=== PATIENT | male | born 1945 | race Caucasian/White ===

== ENCOUNTER 2020-04-09 17:35 | Inpatient (IN) | payer MEDICARE ==
[~2020-04-09] VITALS: Ht 182.9 cm; Wt 80.4 kg
[2020-04-09 18:00] LABS: BASO # 0.1 x10^3/uL (0.0-0.2); BASO % 1 % (0-3); EOS # 0.3 x10^3/uL (0.0-0.7); EOS % 3 % (0-3); HEMATOCRIT 44.9 % (39.0-53.0); HEMOGLOBIN 15.6 g/dL (13.0-17.5); LYMPH # 1.4 x10^3/uL (1.0-4.8); LYMPH % 16 % (24-48); MEAN CORPUSCULAR HEMOGLOBIN 31 pg (25-35); MEAN CORPUSCULAR HGB CONC 35 g/dL (31-37); MEAN CORPUSCULAR VOLUME 88 fL (79-100); MONO # 0.6 x10^3/uL (0.0-1.1); MONO % 7 % (0-9); NEUT # 6.3 x10^3/uL (1.8-7.7); NEUT % 74 % (31-73); PLATELET COUNT 248 x10^3/uL (140-400); RED BLOOD COUNT 5.13 x10^6/uL (4.30-5.70); RED CELL DISTRIBUTION WIDTH 14.7 % (11.5-14.5); WHITE BLOOD COUNT 8.6 x10^3/uL (4.0-11.0)
[2020-04-09] MEDS ORDERED: ONDANSETRON PF 4 MG/2 ML VIAL. ONE (18:00)
[2020-04-09] MEDS ORDERED: ONDANSETRON PF 4 MG/2 ML VIAL. IVP ONE (18:00)
[2020-04-09 18:06] LABS: CALCIUM 9.1 mg/dL (8.5-10.1); CREATININE 1.6 mg/dL (0.7-1.3); GFR 42.5; POTASSIUM 3.8 mmol/L (3.5-5.1)
--- NOTE | 2020-04-09 18:17 | RAD ---
CHEST AP ONLY Clinical Indication: Reason: chest pain / Spl. Instructions: / History: Comparison: None. Findings: The cardiomediastinal silhouette is normal. Question small calcified granuloma left lung base. Lungs are clear. There is no pneumothorax. No pleural effusion is appreciated. No acute bone abnormality. IMPRESSION: No acute cardiopulmonary process. Electronically signed by: Bassem Powell MD (04/09/2020 6:14 PM) [facility]PITALAvlin
[2020-04-09] MEDS ORDERED: ASPIRIN CHEWABLE 81 MG TABLET. PO ONE (18:30)
[2020-04-09] MEDS ORDERED: NITROGLYCERIN SUBLINGUAL 0.4 MG BOTTLE OF 25. SL ONE (18:33)
--- NOTE | 2020-04-09 18:40 | PHYS DOC ---
Past Medical History Past Medical History: No Pertinent History Past Surgical History: Other Additional Past Surgical Histo: SKIN CA REMOVED Smoking Status: Current Every Day Smoker Additional Information: 0.3 PPD Alcohol Use: Rarely General Adult EDM: Chief Complaint: CHEST PAIN HPI: HPI: Patient is a 74 year old male who presents to the ED with a chief complaint of chest pain. Patient states that [place] and the pain started this morning. Patient states that the pain is getting worse and is now radiating to both shoulders. Patient does describe the pain to be in his midsternal region. Patient states that he is an active smoker. Patient denies history of diabetes, hypertension, hyperlipidemia. Patient states that his last cardiac evaluation was over 25 years ago and he does not have a PCP as he has not been to a physician in over 25 years. Review of Systems: Review of Systems: Constitutional: Denies fever or chills. [] Eyes: Denies change in visual acuity. [] HENT: Denies nasal congestion or sore throat. [] Respiratory: Denies cough or shortness of breath. [] Cardiovascular: Complains of chest pain [] GI: Denies abdominal pain, nausea, vomiting, bloody stools or diarrhea. [] : Denies dysuria. [] Neurologic: Denies headache, focal weakness or sensory changes. [] Heart Score: HEART Score for Chest Pain: HEART Score for Chest Pain Response (Comments) Value History Moderately Suspicious 1 ECG Nonspecific Repolarizatio 1 Age > 65 2 Risk Factors 1 or 2 Risk Factors 1 Troponin >1-<3x Normal Limit 1 Total 6 Risk Factors: Risk Factors: DM, Current or recent (<one month) smoker, HTN, HLP, family history of CAD, obesity. Risk Scores: Score 0 - 3: 2.5% MACE over next 6 weeks - Discharge Home Score 4 - 6: 20.3% MACE over next 6 weeks - Admit for Clinical Observation Score 7 - 10: 72.7% MACE over next 6 weeks - Early Invasive Strategies Current Medications: Current Medications Medications (Trade) Dose Ordered Sig/Darlin Start Time Stop Time Status Last Admin Dose Admin Aspirin (Aspirin Chewable) 324 mg 1X ONCE 04/09/20 18:30 04/09/20 18:31 DC 04/09/20 18:33 324 MG Nitroglycerin (Nitrostat) 0.4 mg STK-MED ONCE 04/09/20 18:33 04/09/20 18:33 DC Ondansetron HCl (Zofran) 4 mg 1X ONCE 04/09/20 18:00 04/09/20 18:02 DC 04/09/20 18:04 4 MG Allergies: Allergies: Allergies Coded Allergies Type Severity Reaction Last Updated Verified procaine Allergy Unknown UNKNOWN 04/09/20 Yes Physical Exam: PE: Constitutional: Well developed, well nourished, no acute distress, non-toxic appearance. [] HENT: Normocephalic, atraumatic Eyes: EOMI Neck: Normal range of motion, Supple Cardiovascular:Heart rate regular rhythm Lungs & Thorax: Bilateral breath sounds clear to auscultation [] Abdomen: Bowel sounds normal, soft, no tenderness Extremities: No tenderness, ROM intact Neurologic: Alert and oriented X 3 Current Patient Data: Labs: Laboratory Tests Test 04/09/20 17:45 White Blood Count 8.6 x10^3/uL (4.0-11.0) Red Blood Count 5.13 x10^6/uL (4.30-5.70) Hemoglobin 15.6 g/dL (13.0-17.5) Hematocrit 44.9 % (39.0-53.0) Mean Corpuscular Volume 88 fL (79-100) Mean Corpuscular Hemoglobin 31 pg (25-35) Mean Corpuscular Hemoglobin Concent 35 g/dL (31-37) Red Cell Distribution Width 14.7 % (11.5-14.5) H Platelet Count 248 x10^3/uL (140-400) Neutrophils (%) (Auto) 74 % (31-73) H Lymphocytes (%) (Auto) 16 % (24-48) L Monocytes (%) (Auto) 7 % (0-9) Eosinophils (%) (Auto) 3 % (0-3) Basophils (%) (Auto) 1 % (0-3) Neutrophils # (Auto) 6.3 x10^3/uL (1.8-7.7) Lymphocytes # (Auto) 1.4 x10^3/uL (1.0-4.8) Monocytes # (Auto) 0.6 x10^3/uL (0.0-1.1) Eosinophils # (Auto) 0.3 x10^3/uL (0.0-0.7) Basophils # (Auto) 0.1 x10^3/uL (0.0-0.2) Sodium Level 136 mmol/L (136-145) Potassium Level 3.8 mmol/L (3.5-5.1) Chloride Level 99 mmol/L (98-107) Carbon Dioxide Level 25 mmol/L (21-32) Anion Gap 12 (6-14) Blood Urea Nitrogen 19 mg/dL (8-26) Creatinine 1.6 mg/dL (0.7-1.3) H Estimated GFR (Cockcroft-Gault) 42.5 Glucose Level 114 mg/dL (70-99) H Calcium Level 9.1 mg/dL (8.5-10.1) Troponin I Quantitative 0.097 ng/mL (0.000-0.055) RC-Iiy-S-Type Natriuretic Peptide 830 pg/mL (0-124) H Lipase 115 U/L (73-393) Laboratory Tests 04/09/20 17:45 Laboratory Tests 04/09/20 17:45 Vital Signs: Vital Signs Date Time Temp Pulse Resp B/P (MAP) Pulse Ox O2 Delivery O2 Flow Rate FiO2 04/09/20 18:36 65 201/113 04/09/20 18:19 20 98 Room Air 04/09/20 17:37 97.8 97.8 EKG: EKG: [EKG interpretation: 17: 38 on 04/09/2020 HR: 70 Sinus rhythm Regular intervals Left axis deviation Hyperacute T waves in lead III, V4, V5 Nonspecific ST changes EKG #2 interpretation: 17: 45 on 04/09/2020 HR: 85 Sinus rhythm Regular intervals Left axis deviation Hyperacute T waves in V3, V4, V5 Nonspecific ST changes ] Radiology/Procedures: Radiology/Procedures: [] Impression: CXR IMPRESSION: No acute cardiopulmonary process. Course & Med Decision Making: Course & Med Decision Making Pertinent Labs and Imaging studies reviewed. (See chart for details) Chest x-ray does not show any acute disease. EKG shows acute T waves in V3 V4 V5 Labs are within normal limits Troponin is 0.097 Patient is given chewable aspirin in the ER. Patient is also given nitro as he states that his pain is 6 out of 10. Patient's blood pressures also elevated currently. Due to patient's indeterminant troponin, his presentation and comorbidities, patient will be admitted for further evaluation and treatment. I discussed case with Dr. perez from the hospitalist service who accepts admission. Discussed results and plan of care with patient and family. Alex Disclaimer: Alex Disclaimer: This electronic medical record was generated, in whole or in part, using a voice recognition dictation system. Departure Departure Impression: Primary Impression: Chest pain Additional Impression: Unstable angina Disposition: ADMITTED INPATIENT Admitting Physician: EZEQUIEL Condition: GOOD Justicifation of Admission Dx: Justifications for Admission: Justification of Admission Dx: Yes DE: Acute NSTEMI ARLEN MCWILLIAMS DO Apr 09, 2020 18:40
[2020-04-09] MEDS ORDERED: NITROGLYCERIN SUBLINGUAL 0.4 MG BOTTLE OF 25. SL PRN ×2 (18:45)
[2020-04-09] MEDS ORDERED: ACETAMINOPHEN 325 MG TABLET. PO PRN (18:45)
[2020-04-09 19:24] LABS: PROTHROMBIN TIME PATIENT 14.3 SEC (11.7-14.0)
[2020-04-09] MEDS ORDERED: MORPHINE SULFATE 4 MG/ML VIAL. IV PRN (21:00)
[2020-04-09] MEDS ORDERED: amLODIPine BESYLATE 5 MG TABLET PO ONE (21:00)
[2020-04-09] MEDS ORDERED: NICOTINE 21MG PATCH. TD PRN (21:15)
--- NOTE | 2020-04-09 21:21 | PDOC1 ---
History and Physical Date of Admission Date of Admission DATE: 04/09/20 TIME: 21:20 Source Source: Chart review, Patient History of Present Illness History of Present Illness Mr. Grewal, is a 74 year old male who presents to the ED with a chief complaint of chest pain. Patient states that he was [place] all [place] and the pain started this morning. Patient states that the pain is getting worse and is now radiating to both shoulders. H ethought the pain was heartburn at first, but then worsened, with rpessure, 04/14, Patient does describe the pain to be in his midsternal region. NO cardiac family hx, he has no PCP as he has not been to a physician in over 25 years. Past Medical History Cardiovascular: No pertinent hx Pulmonary: No pertinent hx GI: No pertinent hx Heme/Onc: No pertinent hx Hepatobiliary: No pertinent hx Family History Family History: No Significant Social History Smoke: <1 pack per day (quit for 7 years, restarted when he became a ) ALCOHOL: social Drugs: None Current Problem List Problem List Problems Medical Problems: (1) Chest pain Status: Acute (2) Unstable angina Status: Acute Current Medications Current Medications Current Medications Ondansetron HCl (Zofran) 4 mg STK-MED ONCE .ROUTE ; Start 04/09/20 at 18:00; Stop 04/09/20 at 18:00; Status DC Ondansetron HCl (Zofran) 4 mg 1X ONCE IVP Last administered on 04/09/20at 18:04; Start 04/09/20 at 18:00; Stop 04/09/20 at 18:02; Status DC Aspirin (Aspirin Chewable) 324 mg 1X ONCE PO Last administered on 04/09/20at 18:33; Start 04/09/20 at 18:30; Stop 04/09/20 at 18:31; Status DC Nitroglycerin (Nitrostat) 0.4 mg PRN Q5MIN PRN SL CHEST PAIN Last administered on 04/09/20at 18:36; Start 04/09/20 at 18:45 Nitroglycerin (Nitrostat) 0.4 mg STK-MED ONCE SL ; Start 04/09/20 at 18:33; Stop 04/09/20 at 18:33; Status DC Acetaminophen (Tylenol) 650 mg PRN Q4HRS PRN PO FEVER > 100.3'F; Start 04/09/20 at 18:45; Stop 04/10/20 at 18:44 Nitroglycerin (Nitrostat) 0.4 mg PRN Q5MIN PRN SL CHEST PAIN; Start 04/09/20 at 18:45; Stop 04/10/20 at 18:44 Morphine Sulfate (Morphine Sulfate) 4 mg PRN Q2HR PRN IV SEVERE PAIN 7-10; Start 04/09/20 at 21:00 Amlodipine Besylate (Norvasc) 5 mg 1X ONCE PO ; Start 04/09/20 at 21:00; Stop 04/09/20 at 21:01; Status DC Amlodipine Besylate (Norvasc) 5 mg DAILY PO ; Start 04/10/20 at 09:00 Allergies Allergies: Coded Allergies: procaine (Verified Allergy, Intermediate, 04/09/20) ROS General: No: Chills, Night Sweats, Fatigue, Malaise, Appetite, Other PSYCHOLOGICAL ROS: No: Anxiety, Behavioral Disorder, Concentration difficultie, Decreased libido, Depression, Disorientation, Hallucinations, Hostility, Irritablity, Memory difficulties, Mood Swings, Obsessive thoughts, Physical abuse, Sexual abuse, Sleep disturbances, Suicidal ideation, Other Eyes: No Blurry vision, No Decreased vision, No Double vision, No Dry eyes, No Excessive tearing, No Eye Pain, No Itchy Eyes, No Loss of vision, No Photophobia, No Scotomata, No Uses contacts, No Uses glasses, No Other HEENT: No: Heacaches, Visual Changes, Hearing change, Nasal congestion, Nasal discharge, Oral lesions, Sinus pain, Sore Throat, Epistaxis, Sneezing, Snoring, Tinnitus, Vertigo, Vocal changes, Other Respiratory: No: Cough, Hemoptysis, Orthopnea, Pleuritic Pain, Shortness of breath, SOB with excertion, Sputum Changes, Stridor, Tachypnea, Wheezing, Other Cardiovascular: yes Chest Pain; No Palpitations, No Orthopnea, No Paroxysmal Noc. Dyspnea, No Edema, No Lt Headedness, No Other Gastrointestinal: No Nausea, No Vomiting, No Abdominal Pain, No Diarrhea, No Constipation, No Melena, No Hematochezia, No Other Genitourinary: No Dysuria, No Frequency, No Incontinence, No Hematuria, No Ret ention, No Discharge, No Urgency, No Pain, No Flank Pain, No Other, No , No , No , No , No , No , No Musculoskeletal: No Gait Disturbance, No Joint Pain, No Joint Stiffness, No Joint Swelling, No Muscle Pain, No Muscular Weakness, No Pain In:, No Swelling In:, No Other Neurological: No Behavorial Changes, No Bowel/Bladder ControlChng, No Confusion, No Dizziness, No Gait Disturbance, No Headaches, No Impaired Coord/balance, No Memory Loss, No Numbness/Tingling, No Seizures, No Speech Problems, No Tremors, No Visual Changes, No Weakness, No Other Skin: No Dry Skin, No Eczema, No Hair Changes, No Lumps, No Mole Changes, No Mottling, No Nail Changes, No Pruritus, No Rash, No Skin Lesion Changes, No Other, No Acne Physical Exam General: Alert, Oriented X3, Cooperative, No acute distress HEENT: Atraumatic, PERRLA, Mucous membr. moist/pink Lungs: Clear to auscultation, Normal air movement Heart: S1S2, RRR, no gallops, no murmurs Extremities: No cyanosis, No edema, Normal pulses Skin: No significant lesion, Other ([place] from [place] this [place] on his legs, ) Neuro: Normal gait, Normal speech, Normal tone, Sensation intact Psych/Mental Status: Mental status NL, Mood NL Vitals Vitals Vital Signs Date Time Temp Pulse Resp B/P (MAP) Pulse Ox O2 Delivery O2 Flow Rate FiO2 04/09/20 19:34 60 18 180/101 (127) 98 Room Air 04/09/20 17:37 97.8 97.8 Labs Labs Laboratory Tests Test 04/09/20 17:45 White Blood Count 8.6 x10^3/uL (4.0-11.0) Red Blood Count 5.13 x10^6/uL (4.30-5.70) Hemoglobin 15.6 g/dL (13.0-17.5) Hematocrit 44.9 % (39.0-53.0) Mean Corpuscular Volume 88 fL (79-100) Mean Corpuscular Hemoglobin 31 pg (25-35) Mean Corpuscular Hemoglobin Concent 35 g/dL (31-37) Red Cell Distribution Width 14.7 % (11.5-14.5) Platelet Count 248 x10^3/uL (140-400) Neutrophils (%) (Auto) 74 % (31-73) Lymphocytes (%) (Auto) 16 % (24-48) Monocytes (%) (Auto) 7 % (0-9) Eosinophils (%) (Auto) 3 % (0-3) Basophils (%) (Auto) 1 % (0-3) Neutrophils # (Auto) 6.3 x10^3/uL (1.8-7.7) Lymphocytes # (Auto) 1.4 x10^3/uL (1.0-4.8) Monocytes # (Auto) 0.6 x10^3/uL (0.0-1.1) Eosinophils # (Auto) 0.3 x10^3/uL (0.0-0.7) Basophils # (Auto) 0.1 x10^3/uL (0.0-0.2) Prothrombin Time 14.3 SEC (11.7-14.0) Prothromb Time International Ratio 1.2 (0.8-1.1) Sodium Level 136 mmol/L (136-145) Potassium Level 3.8 mmol/L (3.5-5.1) Chloride Level 99 mmol/L (98-107) Carbon Dioxide Level 25 mmol/L (21-32) Anion Gap 12 (6-14) Blood Urea Nitrogen 19 mg/dL (8-26) Creatinine 1.6 mg/dL (0.7-1.3) Estimated GFR (Cockcroft-Gault) 42.5 Glucose Level 114 mg/dL (70-99) Calcium Level 9.1 mg/dL (8.5-10.1) Troponin I Quantitative 0.097 ng/mL (0.000-0.055) CP-Ahl-N-Type Natriuretic Peptide 830 pg/mL (0-124) Lipase 115 U/L (73-393) Laboratory Tests Test 04/09/20 17:45 White Blood Count 8.6 x10^3/uL (4.0-11.0) Red Blood Count 5.13 x10^6/uL (4.30-5.70) Hemoglobin 15.6 g/dL (13.0-17.5) Hematocrit 44.9 % (39.0-53.0) Mean Corpuscular Volume 88 fL (79-100) Mean Corpuscular Hemoglobin 31 pg (25-35) Mean Corpuscular Hemoglobin Concent 35 g/dL (31-37) Red Cell Distribution Width 14.7 % (11.5-14.5) Platelet Count 248 x10^3/uL (140-400) Neutrophils (%) (Auto) 74 % (31-73) Lymphocytes (%) (Auto) 16 % (24-48) Monocytes (%) (Auto) 7 % (0-9) Eosinophils (%) (Auto) 3 % (0-3) Basophils (%) (Auto) 1 % (0-3) Neutrophils # (Auto) 6.3 x10^3/uL (1.8-7.7) Lymphocytes # (Auto) 1.4 x10^3/uL (1.0-4.8) Monocytes # (Auto) 0.6 x10^3/uL (0.0-1.1) Eosinophils # (Auto) 0.3 x10^3/uL (0.0-0.7) Basophils # (Auto) 0.1 x10^3/uL (0.0-0.2) Prothrombin Time 14.3 SEC (11.7-14.0) Prothromb Time International Ratio 1.2 (0.8-1.1) Sodium Level 136 mmol/L (136-145) Potassium Level 3.8 mmol/L (3.5-5.1) Chloride Level 99 mmol/L (98-107) Carbon Dioxide Level 25 mmol/L (21-32) Anion Gap 12 (6-14) Blood Urea Nitrogen 19 mg/dL (8-26) Creatinine 1.6 mg/dL (0.7-1.3) Estimated GFR (Cockcroft-Gault) 42.5 Glucose Level 114 mg/dL (70-99) Calcium Level 9.1 mg/dL (8.5-10.1) Troponin I Quantitative 0.097 ng/mL (0.000-0.055) ZQ-Ylf-A-Type Natriuretic Peptide 830 pg/mL (0-124) Lipase 115 U/L (73-393) VTE Prophylaxis Ordered VTE Prophylaxis Devices: No VTE Pharmacological Prophylaxi: Yes Assessment/Plan Assessment/Plan chest pain, angina, r/o ACS tobacco use disorder, accelerated htn, add norvasc, PRN CV consult CKD 3 Justicifation of Admission Dx: Justifications for Admission: Justification of Admission Dx: Yes VA: Acute NSTEMI CRAIG CORONA MD Apr 09, 2020 21:21
[2020-04-09] MEDS ORDERED: HEPARIN for IV BOLUS 10,000 UNIT/10 ML VIAL. IV PRN (22:30)
[2020-04-09] MEDS ORDERED: BISMUTH SUBSALICYLATE 262 MG/15 ML ORAL.SUSP 236ML BOTTLE. PO PRN (22:30)
[2020-04-09 23:00] VITALS: BP 158/90
[2020-04-09] MEDS ORDERED: FAMOTIDINE 20 MG TABLET. PO ONE (23:00)
[2020-04-09] MEDS ORDERED: ENOXAPARIN 40 MG/0.4 ML SYRINGE. SQ SCH (23:00)
[2020-04-09] MEDS: IV NORMAL SALINE 1000ML BAG 1,000 ML IV SCH (23:15)
[2020-04-09] MEDS: HEPARIN 25,000UTS/250ML PREMIX 250 ML IV PRN (23:16)
[2020-04-10] VITALS (9 sets, daily range): BP systolic 107–160; BP diastolic 71–90
[2020-04-10] MEDS: ANTI-COAG MONITOR BY PHARMACY. MC PRN (01:25)
[2020-04-10 04:06] LABS: CHOLESTEROL/HDL RATIO 6.9
[2020-04-10 05:55] LABS: HEMATOCRIT 44.9 % (39.0-53.0); HEMOGLOBIN 15.4 g/dL (13.0-17.5); RED BLOOD COUNT 5.17 x10^6/uL (4.30-5.70); RED CELL DISTRIBUTION WIDTH 14.4 % (11.5-14.5); WHITE BLOOD COUNT 7.7 x10^3/uL (4.0-11.0)
[2020-04-10 06:12] LABS: CALCIUM 8.8 mg/dL (8.5-10.1); CREATININE 1.4 mg/dL (0.7-1.3); GFR 49.5; POTASSIUM 3.7 mmol/L (3.5-5.1)
[2020-04-10] MEDS: amLODIPine BESYLATE 5 MG TABLET PO SCH (08:44)
[2020-04-10] MEDS: IV NORMAL SALINE 1000ML BAG 1,000 ML IV SCH (08:45)
--- NOTE | 2020-04-10 11:24 | PDOC2 ---
PERLA PARIS GASKET NOTCHER 04/10/20 1124: CARDIAC CONSULT DATE OF CONSULT Date of Consult DATE: 04/10/20 TIME: 11:08 REASON FOR CONSULT Reason for Consult: Chest pain REFERRING PHYSICIAN Referring Physician: Dr. Golden SOURCE Source: Chart review, Patient HISTORY OF PRESENT ILLNESS HISTORY OF PRESENT ILLNESS This is a 74 yo male who presented secondary to chest pain. Patient reports that he woke up with heart burn type pain yesterday morning. Located in his central chest. Took antacids, which did not help. Pain worsened throughout the day so he came to the ED for further evaluation and treatment. Developed into tightness in his central chest and was slightly short of breath. No dizziness, diaphoresis, palpitations, or nausea/vomiting. Pain was non-radiating. Was [place] the [place] over the weekend so he was tested for COVID, although he denies any cough, fevers, or illness. No cardiac history although he does not routinely go to the doctor. Is presently CP free. PAST MEDICAL HISTORY Cardiovascular: No pertinent hx Pulmonary: No pertinent hx GI: GERD Heme/Onc: No pertinent hx Musculoskeletal: Osteoarthritis Dermatology: Melanoma PAST SURGICAL HISTORY Past Surgical History: No pertinent history FAMILY HISTORY Family History: Heart Disease (mother ) SOCIAL HISTORY Smoke: <1 pack per day ALCOHOL: occassional Drugs: None Lives: Alone CURRENT MEDICATIONS CURRENT MEDICATIONS Current Medications Medications (Trade) Dose Ordered Sig/Darlin Route PRN Reason Start Time Stop Time Status Last Admin Dose Admin Ondansetron HCl (Zofran) 4 mg 1X ONCE IVP 04/09/20 18:00 04/09/20 18:02 DC 04/09/20 18:04 Aspirin (Aspirin Chewable) 324 mg 1X ONCE PO 04/09/20 18:30 04/09/20 18:31 DC 04/09/20 18:33 Nitroglycerin (Nitrostat) 0.4 mg PRN Q5MIN PRN SL CHEST PAIN 04/09/20 18:45 04/09/20 18:36 Amlodipine Besylate (Norvasc) 5 mg 1X ONCE PO 04/09/20 21:00 04/09/20 21:01 DC 04/09/20 22:04 Amlodipine Besylate (Norvasc) 5 mg DAILY PO 04/10/20 09:00 04/10/20 08:44 Heparin Sodium (Porcine) (Heparin Sodium) 2,100 unit PRN Q6HRS PRN IV FOR UFH LEVEL LESS THAN 0.2 04/09/20 22:30 04/10/20 07:34 Heparin Sodium/ Dextrose 250 ml @ 0 mls/hr CONT PRN IV PER PROTOCOL 04/09/20 22:30 04/09/20 23:16 Info (Anti-Coagulation Monitoring By Pharmacy) 1 each PRN DAILY PRN MC SEE COMMENTS 04/09/20 22:45 04/10/20 01:25 Sodium Chloride 1,000 ml @ 100 mls/hr Q10H IV 04/10/20 00:00 04/10/20 08:45 ALLERGIES ALLERGIES: Coded Allergies: procaine (Verified Allergy, Intermediate, 04/09/20) ROS Review of System 14 point ROS conducted with pertinent positives noted above in HPI PHYSICAL EXAM General: Alert, Oriented X3, Cooperative, No acute distress HEENT: Atraumatic, Mucous membr. moist/pink Lungs: Clear to auscultation Heart: Regular rate, Normal S1, Normal S2 Abdomen: Soft, No tenderness Extremities: No edema, Normal pulses Skin: No significant lesion Neuro: Normal speech, Sensation intact Psych/Mental Status: Mental status NL, Mood NL MUSCULOSKELETAL: Osteoarthritic changes both hands VITALS/I&O VITALS/I&O: Vital Signs Date Time Temp Pulse Resp B/P (MAP) Pulse Ox O2 Delivery O2 Flow Rate FiO2 04/10/20 08:44 68 150/66 04/10/20 03:05 97.0 18 98 Room Air 97.0 I & O 04/09/20 04/09/20 04/10/20 15:00 23:00 07:00 Intake Total 150 ml 50 ml Output Total 400 ml 1400 ml Balance -250 ml -1350 ml LABS Lab: Laboratory Tests Test 04/09/20 17:45 04/09/20 21:36 04/10/20 00:28 04/10/20 05:30 White Blood Count 8.6 x10^3/uL (4.0-11.0) 7.7 x10^3/uL (4.0-11.0) Red Blood Count 5.13 x10^6/uL (4.30-5.70) 5.17 x10^6/uL (4.30-5.70) Hemoglobin 15.6 g/dL (13.0-17.5) 15.4 g/dL (13.0-17.5) Hematocrit 44.9 % (39.0-53.0) 44.9 % (39.0-53.0) Mean Corpuscular Volume 88 fL (79-100) 87 fL (79-100) Mean Corpuscular Hemoglobin 31 pg (25-35) 30 pg (25-35) Mean Corpuscular Hemoglobin Concent 35 g/dL (31-37) 34 g/dL (31-37) Red Cell Distribution Width 14.7 % (11.5-14.5) H 14.4 % (11.5-14.5) Platelet Count 248 x10^3/uL (140-400) 251 x10^3/uL (140-400) Neutrophils (%) (Auto) 74 % (31-73) H Lymphocytes (%) (Auto) 16 % (24-48) L Monocytes (%) (Auto) 7 % (0-9) Eosinophils (%) (Auto) 3 % (0-3) Basophils (%) (Auto) 1 % (0-3) Neutrophils # (Auto) 6.3 x10^3/uL (1.8-7.7) Lymphocytes # (Auto) 1.4 x10^3/uL (1.0-4.8) Monocytes # (Auto) 0.6 x10^3/uL (0.0-1.1) Eosinophils # (Auto) 0.3 x10^3/uL (0.0-0.7) Basophils # (Auto) 0.1 x10^3/uL (0.0-0.2) Prothrombin Time 14.3 SEC (11.7-14.0) H Prothrombin Time INR 1.2 (0.8-1.1) H Sodium Level 136 mmol/L (136-145) 138 mmol/L (136-145) Potassium Level 3.8 mmol/L (3.5-5.1) 3.7 mmol/L (3.5-5.1) Chloride Level 99 mmol/L (98-107) 102 mmol/L (98-107) Carbon Dioxide Level 25 mmol/L (21-32) 29 mmol/L (21-32) Anion Gap 12 (6-14) 7 (6-14) Blood Urea Nitrogen 19 mg/dL (8-26) 15 mg/dL (8-26) Creatinine 1.6 mg/dL (0.7-1.3) H 1.4 mg/dL (0.7-1.3) H Estimated GFR (Cockcroft-Gault) 42.5 49.5 Glucose Level 114 mg/dL (70-99) H 107 mg/dL (70-99) H Calcium Level 9.1 mg/dL (8.5-10.1) 8.8 mg/dL (8.5-10.1) Troponin I Quantitative 0.097 ng/mL (0.000-0.055) 3.149 ng/mL (0.000-0.055) 5.024 ng/mL (0.000-0.055) GA-Yef-P-Type Natriuretic Peptide 830 pg/mL (0-124) H Lipase 115 U/L (73-393) Triglycerides Level 70 mg/dL (0-150) Cholesterol Level 247 mg/dL (0-200) H LDL Cholesterol, Calculated 197 mg/dL (0-100) H VLDL Cholesterol, Calculated 14 mg/dL (0-40) Non-HDL Cholesterol Calculated 211 mg/dL (0-129) H HDL Cholesterol 36 mg/dL (40-60) L Cholesterol/HDL Ratio 6.9 Heparin Anti-Xa Act, Unfractionated < 0.10 IU/mL (0.30-0.70) L Laboratory Tests 04/09/20 17:45 04/10/20 05:30 Laboratory Tests 04/09/20 17:45 04/10/20 05:30 ASSESSMENT/PLAN ASSESSMENT/PLAN 1. Chest pain, ACS 2. NSTEMI; highest trop 5. On heparin gtt 3. Accelerated HTN; remains mildly elevated 4. SERENITY on probable CKD 5. Tobaccoism; discussed/encouraged cessation Recommendations ASA Continue heparin gtt Start metoprolol Continue Norvasc. Hydralazine IV PRN Lipid panel Echo to assess LV systolic function Given presentation in the setting of NSTEMI, recommend LHC with possible PCI. R/b/a discussed with patient and he is agreeable to proceed. Supportive care JUAN SANTANA MD 04/10/20 0871: CARDIAC CONSULT ASSESSMENT/PLAN ASSESSMENT/PLAN Patient seen and examined. Agree with OPERATIONS AGENT's assessment and plan. Clinical picture consistent with non-STEMI. Continue heparin infusion per protocol and proceed with cardiac catheterization and possible angioplasty. Start metoprolol for better blood pressure control. LDL elevated-start statin therapy. Creatinine elevated, most probably chronic kidney disease. We will hydrate intravenously prior to cardiac catheterization. Thank you for your consultation. PERLA PARIS APRN Apr 10, 2020 11:24 JUAN SANTANA MD Apr 10, 2020 15:54
[2020-04-10] MEDS ORDERED: hydrALAZINE 20 MG/ML VIAL. IVP PRN (11:30)
[2020-04-10] MEDS: METOPROLOL TART IMMED RELEASE 25 MG TABLET. PO SCH ×2 (12:00→21:01)
[2020-04-10] MEDS: ASPIRIN ENTERIC COATED 81 MG TABLET.DR. PO SCH (12:00)
--- NOTE | 2020-04-10 12:21 | PDOC ---
[facility] PROGRESS NOTE Chief Complaint Chief Complaint CP History of Present Illness History of Present Illness Pt seen and examined Vitals/I&O Vitals/I&O: Vital Signs Date Time Temp Pulse Resp B/P (MAP) Pulse Ox O2 Delivery O2 Flow Rate FiO2 04/10/20 11:12 97.8 73 20 160/86 (110) Room Air 97.8 04/10/20 03:05 98 I & O 04/09/20 04/09/20 04/10/20 15:00 23:00 07:00 Intake Total 150 ml 50 ml Output Total 400 ml 1400 ml Balance -250 ml -1350 ml Physical Exam General: Alert, Oriented X3, Cooperative, No acute distress Heart: Regular rate, Normal S1, Normal S2 Abdomen: Soft, No tenderness Extremities: No edema, Normal pulses Skin: No significant lesion Labs Labs: Laboratory Tests Test 04/09/20 17:45 04/09/20 19:25 04/09/20 21:36 04/10/20 00:28 White Blood Count 8.6 x10^3/uL (4.0-11.0) Red Blood Count 5.13 x10^6/uL (4.30-5.70) Hemoglobin 15.6 g/dL (13.0-17.5) Hematocrit 44.9 % (39.0-53.0) Mean Corpuscular Volume 88 fL (79-100) Mean Corpuscular Hemoglobin 31 pg (25-35) Mean Corpuscular Hemoglobin Concent 35 g/dL (31-37) Red Cell Distribution Width 14.7 % (11.5-14.5) Platelet Count 248 x10^3/uL (140-400) Neutrophils (%) (Auto) 74 % (31-73) Lymphocytes (%) (Auto) 16 % (24-48) Monocytes (%) (Auto) 7 % (0-9) Eosinophils (%) (Auto) 3 % (0-3) Basophils (%) (Auto) 1 % (0-3) Neutrophils # (Auto) 6.3 x10^3/uL (1.8-7.7) Lymphocytes # (Auto) 1.4 x10^3/uL (1.0-4.8) Monocytes # (Auto) 0.6 x10^3/uL (0.0-1.1) Eosinophils # (Auto) 0.3 x10^3/uL (0.0-0.7) Basophils # (Auto) 0.1 x10^3/uL (0.0-0.2) Prothrombin Time 14.3 SEC (11.7-14.0) Prothromb Time International Ratio 1.2 (0.8-1.1) Sodium Level 136 mmol/L (136-145) Potassium Level 3.8 mmol/L (3.5-5.1) Chloride Level 99 mmol/L (98-107) Carbon Dioxide Level 25 mmol/L (21-32) Anion Gap 12 (6-14) Blood Urea Nitrogen 19 mg/dL (8-26) Creatinine 1.6 mg/dL (0.7-1.3) Estimated GFR (Cockcroft-Gault) 42.5 Glucose Level 114 mg/dL (70-99) Calcium Level 9.1 mg/dL (8.5-10.1) Troponin I Quantitative 0.097 ng/mL (0.000-0.055) 3.149 ng/mL (0.000-0.055) 5.024 ng/mL (0.000-0.055) WX-Ndv-X-Type Natriuretic Peptide 830 pg/mL (0-124) Lipase 115 U/L (73-393) Coronavirus (COVID-19)(PCR) Negative (NEGATIVE) Triglycerides Level 70 mg/dL (0-150) Cholesterol Level 247 mg/dL (0-200) LDL Cholesterol, Calculated 197 mg/dL (0-100) VLDL Cholesterol, Calculated 14 mg/dL (0-40) Non-HDL Cholesterol Calculated 211 mg/dL (0-129) HDL Cholesterol 36 mg/dL (40-60) Cholesterol/HDL Ratio 6.9 Test 04/10/20 05:30 White Blood Count 7.7 x10^3/uL (4.0-11.0) Red Blood Count 5.17 x10^6/uL (4.30-5.70) Hemoglobin 15.4 g/dL (13.0-17.5) Hematocrit 44.9 % (39.0-53.0) Mean Corpuscular Volume 87 fL (79-100) Mean Corpuscular Hemoglobin 30 pg (25-35) Mean Corpuscular Hemoglobin Concent 34 g/dL (31-37) Red Cell Distribution Width 14.4 % (11.5-14.5) Platelet Count 251 x10^3/uL (140-400) Heparin Anti-Xa Act, Unfractionated < 0.10 IU/mL (0.30-0.70) Sodium Level 138 mmol/L (136-145) Potassium Level 3.7 mmol/L (3.5-5.1) Chloride Level 102 mmol/L (98-107) Carbon Dioxide Level 29 mmol/L (21-32) Anion Gap 7 (6-14) Blood Urea Nitrogen 15 mg/dL (8-26) Creatinine 1.4 mg/dL (0.7-1.3) Estimated GFR (Cockcroft-Gault) 49.5 Glucose Level 107 mg/dL (70-99) Calcium Level 8.8 mg/dL (8.5-10.1) Assessment and Plan Assessmemt and Plan Problems Medical Problems: (1) Chest pain Status: Acute (2) Unstable angina Status: Acu Plan RU COVID Cath labs later today probable Heparin drip Comment Review of Relevant I have reviewed the following items cindy (where applicable) has been applied. Medications: Current Medications Medications (Trade) Dose Ordered Sig/Darlin Route PRN Reason Start Time Stop Time Status Last Admin Dose Admin Ondansetron HCl (Zofran) 4 mg 1X ONCE IVP 04/09/20 18:00 04/09/20 18:02 DC 04/09/20 18:04 Aspirin (Aspirin Chewable) 324 mg 1X ONCE PO 04/09/20 18:30 04/09/20 18:31 DC 04/09/20 18:33 Nitroglycerin (Nitrostat) 0.4 mg PRN Q5MIN PRN SL CHEST PAIN 04/09/20 18:45 04/09/20 18:36 Amlodipine Besylate (Norvasc) 5 mg 1X ONCE PO 04/09/20 21:00 04/09/20 21:01 DC 04/09/20 22:04 Amlodipine Besylate (Norvasc) 5 mg DAILY PO 04/10/20 09:00 04/10/20 08:44 Heparin Sodium (Porcine) (Heparin Sodium) 2,100 unit PRN Q6HRS PRN IV FOR UFH LEVEL LESS THAN 0.2 04/09/20 22:30 04/10/20 07:34 Heparin Sodium/ Dextrose 250 ml @ 0 mls/hr CONT PRN IV PER PROTOCOL 04/09/20 22:30 04/09/20 23:16 Info (Anti-Coagulation Monitoring By Pharmacy) 1 each PRN DAILY PRN MC SEE COMMENTS 04/09/20 22:45 04/10/20 01:25 Sodium Chloride 1,000 ml @ 100 mls/hr Q10H IV 04/10/20 00:00 04/10/20 08:45 Justicifation of Admission Dx: Justifications for Admission: Justification of Admission Dx: Yes MT: Acute NSTEMI FRANCOIS HORAN III DO Apr 10, 2020 12:20
[2020-04-10] MEDS ORDERED: LIDOCAINE 1% PF 2 ML VIAL. ONE (14:20)
[2020-04-10] MEDS ORDERED: MIDAZOLAM HCL/PF 2 MG/2 ML VIAL. ONE (14:49)
[2020-04-10] MEDS ORDERED: HEPARIN for IV BOLUS 10,000 UNIT/10 ML VIAL. ONE (14:49)
[2020-04-10] MEDS ORDERED: fentaNYL PF VIAL 100 MCG/2 ML VIAL ONE (14:49)
[2020-04-10] MEDS ORDERED: VERAPAMIL 5 MG/2 ML VIAL. ONE (14:50)
[2020-04-10] MEDS ORDERED: NITROGLYCERIN 200 MCG/2 ML SYRINGE FOR CATH/VASC LAB. ONE (14:50)
[2020-04-10] MEDS ORDERED: IODIXANOL 320 MG/ML 100 ML VIAL. ONE (14:53)
[2020-04-10] MEDS ORDERED: VERAPAMIL 5 MG/2 ML VIAL. IART ONE (15:15)
[2020-04-10] MEDS ORDERED: LIDOCAINE 1% PF 2 ML VIAL. INJ ONE (15:15)
[2020-04-10] MEDS ORDERED: NITROGLYCERIN 200 MCG/2 ML SYRINGE FOR CATH/VASC LAB. IART ONE (15:15)
[2020-04-10] MEDS ORDERED: IODIXANOL 320 MG/ML 100 ML VIAL. IART ONE (15:15)
[2020-04-10] MEDS ORDERED: fentaNYL PF VIAL 100 MCG/2 ML VIAL IV ONE (15:15)
[2020-04-10] MEDS ORDERED: HEPARIN for IV BOLUS 10,000 UNIT/10 ML VIAL. IART ONE (15:15)
[2020-04-10] MEDS ORDERED: MIDAZOLAM HCL/PF 2 MG/2 ML VIAL. IV ONE (15:15)
--- NOTE | 2020-04-10 15:49 | CARD ---
MR#: [id number] Date of Study: 04/10/2020 Ordering Physician: PERLA PARIS, Referring Physician: PERLA PARIS, Tech: RACHEL AN APPROVED REPORT Technologist: RACHEL AN Nurse: Annie Velasquez R.N. Procedure(s) performed: Left heart catheterization, selective coronary angiography and left ventricul ography via right transradial approach FL TIME: 2.6 MINS DOSE: 39 GYCM2 CONTRAST: 92 ML MODERATE SEDATION: 21 MIN INDICATION The indication(s) include : non-STEMI . CSHA Clinical Frailty Scale CSHA Clinical Frailty Scale: Managing Well Heart Failure Heart Failure: No PROCEDURE NARRATIVE After explaining the risks, benefits and alternative options, informed consent was obtained from temo ent. Patient was brought to the cardiac Printing Equipment Mechanic Apprentice and right wrist was prepped and draped in the usual fashion after confirming a positive modified Geoffrey's test. Arterial access was obtained in the [facility] t radial artery and a 6 Argentine sheath was inserted. 6 Argentine Ketan catheter was used to perform marge ective angiography of the left and right coronary arteries. 6 Argentine pigtail catheter was used to pe rform left ventriculography. Patient tolerated the procedure well. Hemostasis was achieved using TR band. There were no immediate complications. The following findings were noted. FINDINGS 1. Hemodynamics: Left ventricular end-diastolic pressure of 15 mmHg. No pullback gradient across th e aortic valve. 2. Left ventriculography: Normal left ventricle systolic function with ejection fraction estimated a t 65 to 70%. No significant mitral regurgitation seen. 3. Coronary angiography: a. The left main coronary artery arose from the left sinus of Valsalva, gave rise to the left anteri or descending and left circumflex arteries and showed 20% distal segment stenosis. b. The left anterior descending artery showed 30% ostial segment stenosis. The third diagonal branc h which is a small to medium caliber vessel showed 90% stenosis in the proximal segment. This is pro bably the culprit vessel for patient's non-STEMI. c. The left circumflex artery was a large and dominant vessel that showed 20% stenosis in the proxim al segment, 30% stenosis in the distal segment. The left posterior descending branch showed 30% sten osis in the proximal segment. d. The right coronary artery was a small and nondominant vessel that showed 100% chronic total occlu miki in the midsegment. Conclusion 1. 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 90% stenosi s involving the proximal segment of small to medium caliber diagonal branch. No lesions needing inte rvention were noted. 2. Normal left ventricular systolic function with ejection fraction estimated at 65 to 70%. Recommendations Medical Therapy Signed by : Clayton Rincon, Electronically Approved : 04/10/2020 15:48:51
[2020-04-10] MEDS ORDERED: IV 1/2 NORMAL SALINE 1,000 ML IV SCH (15:50)
--- NOTE | 2020-04-10 15:50 | PDOC ---
MODERATE SEDATION ASSESSMENT RISKS/ALTERNATIVES Risks/Alternatives Risks and alternatives of this type of sedation and procedure discussed with: RISK/ALTERNATIVES: Patient H & P ON CHART H & P H & P on chart and reviewed for co-morbid conditions and appropriate labs. H&P ON CHART: Yes STATUS PREG STATUS ASSESSED: N/A MEDS/ALLERGIES REVIEWED Meds/Allergies Reviewed Medications and Allergies including time and route of recently administered narcotics and sedatives. MEDS/ALLERGIES REVIEWED: Yes ASA RATING ASA RATING: II AIRWAY ASSESSMENT Airway Assessment Airway patency, oral function limitations, presence of caps, crowns, dentures, partials, and ability to extend neck assessed. AIRWAY ASSESSMENT: Yes MALLAMPATI SCORE MALLAMPATI SCORE: II PRE-SEDATION ASSESSMENT PRE-SEDATION ASSESSMENT: Yes JUAN SANTANA MD Apr 10, 2020 15:49
[2020-04-10] MEDS ORDERED: NITROGLYCERIN SUBLINGUAL 0.4 MG BOTTLE OF 25. SL PRN (16:00)
[2020-04-10] MEDS: HEPARIN 25,000UTS/250ML PREMIX 250 ML IV PRN (17:25)
--- NOTE | 2020-04-10 19:59 | NUR ---
pt was set up fro frequent vital signs upon arrival to the unit. All frequent vitals signs were obtained as needed and seen on monitor and by staff however pts monitor was discharged by mistake and family stated they hit something on the monitor in the room. pts vitals were unable to be pulled up. no distress, no pain, nov bleeding from site of heart cath . will continue to monitor
[2020-04-10] MEDS ORDERED: ATORVASTATIN CALCIUM 40 MG TABLET. PO SCH (21:00)
[2020-04-10] MEDS ORDERED: FAMOTIDINE 20 MG TABLET. PO SCH (21:00)
[2020-04-11 02:04] VITALS: BP 108/70
[2020-04-11] MEDS: HEPARIN 25,000UTS/250ML PREMIX 250 ML IV PRN (06:00)
[2020-04-11 06:08] VITALS: BP 131/77
--- NOTE | 2020-04-11 07:07 | EKG ---
[facility] [address] [place] [address] Test Date: 2020-04-09 Test Time: 17:45:29 Pat Name: BETO KNAPP Department: Room: 204 1 Gender: M Automotive Fleet Supervisor: : 1945 Requested By: TAMMY OLGUIN Order Number: [id number] Reading MD: Measurements Intervals [place] Rate: 85 P: -9 IA: 152 QRS: -36 QRSD: 78 T: 36 QT: 372 QTc: 448 Interpretive Statements SINUS RHYTHM INTERPOLATED VENTRICULAR PREMATURE COMPLEX(ES) ATRIAL PREMATURE COMPLEX(ES) INTERPOLATED ATRIAL PREMATURE COMPLEX(ES) ABNORMAL LEFT AXIS DEVIATION LEFT ANTERIOR FASCICULAR BLOCK QRS(T) CONTOUR ABNORMALITY CONSISTENT WITH ANTEROSEPTAL INFARCT AGE UNDETERMINED ABNORMAL ECG RI6.01
[2020-04-11] MEDS: ASPIRIN ENTERIC COATED 81 MG TABLET.DR. PO SCH (08:50)
[2020-04-11] MEDS: METOPROLOL TART IMMED RELEASE 25 MG TABLET. PO SCH (08:51)
[2020-04-11] MEDS: amLODIPine BESYLATE 5 MG TABLET PO SCH (08:51)
--- NOTE | 2020-04-11 09:18 | NUR ---
SS following for discharge planning. SS reviewed pt chart and discussed with pt RN. Pt is from home and is currently on room air. Pt had heart cath on 04/10/2020. Pt on Heparin drip. Discharge plan is to home when ready. SS will continue to follow for discharge planning.
[2020-04-11] MEDS: ANTI-COAG MONITOR BY PHARMACY. MC PRN (10:50)
[2020-04-11 11:00] VITALS: BP 122/71
[2020-04-11] MEDS ORDERED: ATOR40TA59 PO (12:06)
[2020-04-11] MEDS ORDERED: METO25TA4 PO (12:06)
[2020-04-11] MEDS ORDERED: ASPI-886 PO (12:06)
--- NOTE | 2020-04-11 12:08 | PDOC3 ---
Discharge Summary Visit Information Date of Admission: Apr 09, 2020 Date of Discharge: Apr 11, 2020 Final Diagnosis chest pain, angina, NEW DIAGNOSIS CAD tobacco use disorder, accelerated htn, CKD 2-3 Problems Medical Problems: (1) Chest pain Status: Acute (2) Unstable angina Status: Acute Brief Hospital Course Allergies Allergies Coded Allergies Type Severity Reaction Last Updated Verified procaine Allergy Intermediate 04/09/20 Yes Vital Signs Vital Signs Date Time Temp Pulse Resp B/P (MAP) Pulse Ox O2 Delivery O2 Flow Rate FiO2 04/11/20 08:51 74 122/69 04/11/20 08:00 Room Air 04/11/20 06:08 97.4 20 97 97.4 04/10/20 15:29 2.0 Lab Results Laboratory Tests Test 04/09/20 17:45 04/09/20 19:25 04/09/20 21:36 04/10/20 00:28 White Blood Count 8.6 x10^3/uL (4.0-11.0) Red Blood Count 5.13 x10^6/uL (4.30-5.70) Hemoglobin 15.6 g/dL (13.0-17.5) Hematocrit 44.9 % (39.0-53.0) Mean Corpuscular Volume 88 fL (79-100) Mean Corpuscular Hemoglobin 31 pg (25-35) Mean Corpuscular Hemoglobin Concent 35 g/dL (31-37) Red Cell Distribution Width 14.7 % (11.5-14.5) Platelet Count 248 x10^3/uL (140-400) Neutrophils (%) (Auto) 74 % (31-73) Lymphocytes (%) (Auto) 16 % (24-48) Monocytes (%) (Auto) 7 % (0-9) Eosinophils (%) (Auto) 3 % (0-3) Basophils (%) (Auto) 1 % (0-3) Neutrophils # (Auto) 6.3 x10^3/uL (1.8-7.7) Lymphocytes # (Auto) 1.4 x10^3/uL (1.0-4.8) Monocytes # (Auto) 0.6 x10^3/uL (0.0-1.1) Eosinophils # (Auto) 0.3 x10^3/uL (0.0-0.7) Basophils # (Auto) 0.1 x10^3/uL (0.0-0.2) Prothrombin Time 14.3 SEC (11.7-14.0) Prothromb Time International Ratio 1.2 (0.8-1.1) Sodium Level 136 mmol/L (136-145) Potassium Level 3.8 mmol/L (3.5-5.1) Chloride Level 99 mmol/L (98-107) Carbon Dioxide Level 25 mmol/L (21-32) Anion Gap 12 (6-14) Blood Urea Nitrogen 19 mg/dL (8-26) Creatinine 1.6 mg/dL (0.7-1.3) Estimated GFR (Cockcroft-Gault) 42.5 Glucose Level 114 mg/dL (70-99) Calcium Level 9.1 mg/dL (8.5-10.1) Troponin I Quantitative 0.097 ng/mL (0.000-0.055) 3.149 ng/mL (0.000-0.055) 5.024 ng/mL (0.000-0.055) KP-Emg-T-Type Natriuretic Peptide 830 pg/mL (0-124) Lipase 115 U/L (73-393) Coronavirus (COVID-19)(PCR) Negative (NEGATIVE) Triglycerides Level 70 mg/dL (0-150) Cholesterol Level 247 mg/dL (0-200) LDL Cholesterol, Calculated 197 mg/dL (0-100) VLDL Cholesterol, Calculated 14 mg/dL (0-40) Non-HDL Cholesterol Calculated 211 mg/dL (0-129) HDL Cholesterol 36 mg/dL (40-60) Cholesterol/HDL Ratio 6.9 Test 04/10/20 05:30 04/10/20 13:40 04/10/20 23:35 04/11/20 05:50 White Blood Count 7.7 x10^3/uL (4.0-11.0) Red Blood Count 5.17 x10^6/uL (4.30-5.70) Hemoglobin 15.4 g/dL (13.0-17.5) Hematocrit 44.9 % (39.0-53.0) Mean Corpuscular Volume 87 fL (79-100) Mean Corpuscular Hemoglobin 30 pg (25-35) Mean Corpuscular Hemoglobin Concent 34 g/dL (31-37) Red Cell Distribution Width 14.4 % (11.5-14.5) Platelet Count 251 x10^3/uL (140-400) Heparin Anti-Xa Act, Unfractionated < 0.10 IU/mL (0.30-0.70) 0.28 IU/mL (0.30-0.70) 0.50 IU/mL (0.30-0.70) 0.54 IU/mL (0.30-0.70) Sodium Level 138 mmol/L (136-145) Potassium Level 3.7 mmol/L (3.5-5.1) Chloride Level 102 mmol/L (98-107) Carbon Dioxide Level 29 mmol/L (21-32) Anion Gap 7 (6-14) Blood Urea Nitrogen 15 mg/dL (8-26) Creatinine 1.4 mg/dL (0.7-1.3) Estimated GFR (Cockcroft-Gault) 49.5 Glucose Level 107 mg/dL (70-99) Calcium Level 8.8 mg/dL (8.5-10.1) Thyroid Stimulating Hormone (TSH) 2.176 uIU/mL (0.358-3.74) Laboratory Tests Test 04/10/20 13:40 04/10/20 23:35 04/11/20 05:50 Heparin Anti-Xa Act, Unfractionated 0.28 IU/mL (0.30-0.70) 0.50 IU/mL (0.30-0.70) 0.54 IU/mL (0.30-0.70) Brief Hospital Course Mr. Grewal is a 74 old ADMIT WITH chest pain, accel htn, metop, norvasc, bp better, will Dc on one agent cardiac cath showed mult small occlusions, no stent, secondary prevention needed tobacco cessatin counseling, Discharge Information Condition at Discharge: Improved Follow Up: Weeks Disposition/Orders: D/C to Home Scheduled Aspirin (Aspirin Ec) 81 Mg Tablet., 81 MG PO DAILYWBKFT for CARDIAC, #100 Prescribed by: CRAIG CORONA on 04/11/20 1206 Atorvastatin Calcium (Atorvastatin Calcium) 40 Mg Tablet, 40 MG PO QHS for CARDIAC, #30 Prescribed by: CRAIG CORONA on 04/11/20 1206 Metoprolol Tartrate (Metoprolol Tartrate) 25 Mg Tablet, 25 MG PO BID for CARDIAC, #60 Ref 1 Prescribed by: CRAIG CORONA on 04/11/20 1206 Patient Instructions Patient Instructions > 30 min discussed with him face to face Justicifation of Admission Dx: Justifications for Admission: Justification of Admission Dx: Yes [place]: Acute NSTEMI CRAIG CORONA MD Apr 11, 2020 12:08
--- NOTE | 2020-04-11 12:28 | PDOC ---
JAYDEN HOPSON HOT KETTLE TENDER 04/11/20 1228: CARDIO Progress Notes Date and Time Date of Service 04/11/2020 Time of Evaluation 0920 Subjective Subjective: No Chest Pain, No shortness of breath, No Palpitations Vitals Vitals Vital Signs Date Time Temp Pulse Resp B/P (MAP) Pulse Ox O2 Delivery O2 Flow Rate FiO2 04/11/20 08:51 74 122/69 04/11/20 08:00 Room Air 04/11/20 06:08 97.4 20 97 97.4 04/10/20 15:29 2.0 Weight Weight [ ] Input and Output Intake and Output Intake and Output 04/11/20 07:00 Intake Total 1100 ml Output Total 900 ml Balance 200 ml Intake Oral 1100 ml Output Urine Total 900 ml # Voids 5 # Bowel Movements 1 Laboratory Labs Laboratory Tests Test 04/10/20 13:40 04/10/20 23:35 04/11/20 05:50 Heparin Anti-Xa Act, Unfractionated 0.28 IU/mL (0.30-0.70) 0.50 IU/mL (0.30-0.70) 0.54 IU/mL (0.30-0.70) Physical Exam HEENT: Neck Supple W Full Motion Chest: Symmetric LUNGS: Clear to Auscultation Heart: S1S2, RRR (SR without significnat ectopies) Abdomen: Soft N/T Extremities: No Edema, No Calf Tenderness Neurology: alert, oriented, follow commands Other Exams right wrist arteriotomy site intact, no erythema or swelling, neurovascualr status to right hand intact. Assessment Assessment 1. NSTEMI: Peaked trop. EF and LV function nml per [facility]. result as below 2. 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 90% stenosis involving the proximal segment of small to medium caliber diagonal branch. No lesions needing intervention were noted. 3. Accelerated HTN; now controlled 4. Suspect CKD3 5. Tobaccoism Recommendations 1. 91 mg ASA indefinitely. Plavix at least x1 month. DC heparin. NTG SL PRN 2. Lipitor at 40 mg daily. Continue with metoprolol and norvasc. 3. Smoking cessation , cardiac rehab 4. He lives in [place], [place] and could follow up with Dr. Simon overthere. Justicifation of Admission Dx: Justifications for Admission: Justification of Admission Dx: Yes [place]: Acute NSTEMI JUAN SANTANA MD 04/11/20 1420: CARDIO Progress Notes Assessment Assessment Patient seen and examined. Agree with SOFTWARE TOOLS BUILD ENGINEER's assessment and plan. Cardiac catheterization results noted above with no lesions needing intervention. Blood pressure better controlled Continue current medical management Okay for discharge from cardiac standpoint JAYDEN HOPSON APRN Apr 11, 2020 12:28 JUAN SANTANA MD Apr 11, 2020 14:20
[2020-04-11] MEDS ORDERED: NITR0.4T22 SL (13:02)
[2020-04-11] MEDS ORDERED: AMLO5TAB10 PO (13:03)
[2020-04-11] MEDS ORDERED: CLOP75TA PO (13:04)
--- NOTE | 2020-04-11 14:27 | NUR ---
PT DISCHARGED WITH FAMILY AT APPROX 1330. PT AND FAMILY GIVEN DISCHARGE INSTRUCTIONS WELL FOLLOW UP VISIT INFORMATION, SCRIPTS , WEB UI DESIGNER INFO IN [facility] WELL DR SANTANA INFO SO PT CAN ALWAYS SEE DR SANTANA IF HE CANT FIND A WEB UI DESIGNER CLOSE TO [facility].
--- NOTE | 2020-04-11 14:39 | EKG ---
[facility] [address] [place] [address] Test Date: 2020-04-09 Test Time: 17:38:44 Pat Name: BETO KNAPP Department: Room: 204 1 Gender: M Build Manager: : 1945 Requested By: TAMMY OLGUIN Order Number: [id number] Reading MD: Measurements Intervals [place] Rate: 70 P: 15 TX: 152 QRS: -32 QRSD: 78 T: 54 QT: 364 QTc: 396 Interpretive Statements SINUS RHYTHM ABNORMAL LEFT AXIS DEVIATION QRS(T) CONTOUR ABNORMALITY CONSISTENT WITH ANTEROSEPTAL INFARCT AGE UNDETERMINED ABNORMAL ECG RI6.01 No previous ECG available for comparison
--- NOTE | 2020-04-11 14:57 | CARD ---
MR#: [id number] Date of Study: 04/11/2020 Ordering Physician: PERLA PARIS, Referring Physician: PERLA PARIS, Tech: Tara Landeros APPROVED REPORT EXAM: Two-dimensional and M-mode echocardiogram with Doppler and color Doppler. Other Information Quality : Average INDICATION Chest Pain Non STEMI RISK FACTORS Hyperlipidemia Smoking 2D DIMENSIONS Left Atrium(2D)3.2 (1.6-4.0cm)IVSd1.3 (0.7-1.1cm) Aortic Root(2D)3.2 (2.0-3.7cm)LVDd4.7 (3.9-5.9cm) LVOT Diameter2.2 (1.8-2.4cm)PWd0.9 (0.7-1.1cm) LVDs2.7 (2.5-4.0cm)FS (%) 42.0 % SV73.2 mlLVEF(%)73.0 (>50%) Aortic Valve AoV Peak Earl.117.3cm/sAoV VTI29.2cm AO Peak GR.5.5mmHgLVOT Peak Earl.99.2cm/s LVOT VTI 22.55cmAO Mean GR.3mmHg CAROL (VMAX)2.62sl8HUW (VTI)2.88cm2 Mitral Valve MV E Norhirco03.9cm/sMV DECEL [id number] MV A Sjytltxt17.9cm/sMV E Mean Gr.1mmHg MV SOL97ryZ/A Ratio1.0 MVA (PHT)3.70cm2 TDI E/Lateral E'8.8E/Medial E'10.6 Pulmonary Valve PV Peak Gozughab45.2cm/sPV Peak Grad.2mmHg Tricuspid Valve TR P. Mqjctyzj672ah/sRAP [id number] TR Peak Gr.53whZjBUUC76sbYo LEFT VENTRICLE The left ventricle is normal size. There is borderline to mild concentric left ventricular hypertroph y. The left ventricular systolic function is normal and the ejection fraction is within normal range. The Ejection Fraction is 55%. Septal motion consistent with conduction abnormality. The apex is fidel rely hypokinetic. Transmitral Doppler flow pattern is Grade II-pseudonormal filling dynamics. RIGHT VENTRICLE The right ventricle is normal size. There is normal right ventricular wall thickness. The right ventr icular systolic function is normal. ATRIA The left atrium size is normal. The right atrium size is normal. The interatrial septum is intact wit h no evidence for an atrial septal defect or patent foramen ovale as noted on 2-D or Doppler imaging. AORTIC VALVE The aortic valve is normal in structure and function. Doppler and Color Flow revealed trace aortic re gurgitation. Calculated aortic valve area is 2.82 cm2 with maximum pressure gradient of 6 mmHg and me an pressure gradient of 4 mmHg. MITRAL VALVE The mitral valve is normal in structure and function. There is no evidence of mitral valve prolapse. There is no mitral valve stenosis. Doppler and Color-flow revealed trace mitral regurgitation. TRICUSPID VALVE The tricuspid valve is normal in structure and function. Doppler and Color Flow revealed trace tricus pid regurgitation with an estimated PAP of 29 mmHg. There is no tricuspid valve stenosis. PULMONIC VALVE The pulmonic valve is not well visualized. Doppler and Color Flow revealed no pulmonic valvular regur gitation. GREAT VESSELS The aortic root is normal in size. The IVC is normal in size and collapses >50% with inspiration. PERICARDIAL EFFUSION There is no evidence of significant pericardial effusion. Critical Notification Critical Value: No <Conclusion> The left ventricular systolic function is normal and the ejection fraction is within normal range. Th e Ejection Fraction is 55%. Septal motion consistent with conduction abnormality. The apex is severely hypokinetic. Signed by : Kendall Ibarra, Electronically Approved : 04/11/2020 14:57:07
== END 2020-04-11 13:31 | disposition home or self-care (01) | DRG 280 ==
LOC: ER 17:35 → 6 SOUTH 18:35 → 2 NORTH 04-10 14:52
PROVIDERS: ADMIT Internal Medicine; ATTEND Internal Medicine
PROC: 4A023N7 Measurement of Cardiac Sampling and Pressure, Left Heart, Percutaneous Approach (ICD-10-PCS; principal; 2020-04-10)
PROC: B2111ZZ Fluoroscopy of Multiple Coronary Arteries using Low Osmolar Contrast (ICD-10-PCS; 2020-04-10)
PROC: B2151ZZ Fluoroscopy of Left Heart using Low Osmolar Contrast (ICD-10-PCS; 2020-04-10)
DX: I21.4 Non-ST elevation (NSTEMI) myocardial infarction (principal); N17.0 Acute kidney failure with tubular necrosis; I25.110 Atherosclerotic heart disease of native coronary artery with unstable angina pectoris; I12.9 Hypertensive chronic kidney disease with stage 1 through stage 4 chronic kidney disease, or unspecified chronic kidney disease; F17.210 Nicotine dependence, cigarettes, uncomplicated; N18.3 Chronic kidney disease, stage 3 (moderate); Z82.49 Family history of ischemic heart disease and other diseases of the circulatory system; Z85.820 Personal history of malignant melanoma of skin; K21.9 Gastro-esophageal reflux disease without esophagitis; M19.90 Unspecified osteoarthritis, unspecified site; Z71.6 Tobacco abuse counseling; Z79.899 Other long term (current) drug therapy; Z20.828 Contact with and (suspected) exposure to other viral communicable diseases
CPT/HCPCS: 36415; 71045; 80048; 80061; 83690; 83880; 84443; 84484; 85025; 85027; 85520; 85610; 93005; 93306; 93458; 96374; 99152; C1769; C1892; J1644; J2250; J2405; J3010; J3490; J7030; Q9967; 99285-25; G0378; U0003-CS